=== PATIENT | male | born 1955 | race African-American/Black ===

== ENCOUNTER → 2018-04-04 | Outpatient (CLI) | payer MEDICARE, BC ==
[2017-08-20 10:48] VITALS: BP 119/84
[~2018-04-04] VITALS: Ht 180.3 cm; Wt 90.7 kg
[~2018-04-04] MED LIST: ALLO300T PO; AMLO10TA4 PO; AMLO10TA6 PO; AMLO5TAB7 PO; AMOX500C PO; ASPI-482 PO; ATEN100T PO; BUME1TAB PO; Bumetanide PO; CALC0.25 PO; CINA30TA2 PO; CLAR500T PO; CLON0.1T PO; CLON0.2T PO; CLON1PAT TD; CLON1PAT11 TD; CLON1PAT3 TD; DIPH25CA58 PO; DOCU50CA9 PO; DOXA2TAB PO; DOXA2TAB2 PO; FERR325T3 PO; FLUT1DIS3 IH; FOLI0.8T3 PO; FOLI1TAB16 PO; FURO40TA4 PO; GABA300C18 PO; GABA300S PO; HYDR-3164 PO; HYDR2TAB31 PO; IOHEXOL 240 MG/ML 50ML VIAL. IJ ONE; IOHEXOL 240 MG/ML 50ML VIAL. ONE; IPRA3AMP29 IH; LABE200T24 PO; LABE200T4 PO; LEVO500T59 PO; LEVO500T8 PO; LORA10CA PO; LOSA-73 PO; LOSA100T14 PO; LOSA25TA54 PO; METO2.5T PO; METO25TA4 PO; OLME1TAB35 PO; OMEP20CA9 PO; OXYC1TAB15 PO; OXYC1TAB8 PO; PANT40GR PO; PANT40TA3 PO; POLY17PO29 PO; POLY255P11 PO; PROAIR HFA8.5 GM INH; Pantoprazole PO; SEVE800T9 PO; SODI650T PO; TIZA2TAB PO; TORS20TA PO; TRAM50TA PO; [UNRECOGNIZED DRUG - REMARK]
--- NOTE | 2018-04-06 08:05 | RAD ---
Fluoroscopic evaluation of right lower quadrant tunneled peritoneal dialysis catheter 04/04/2018 Indication: Nonfunctioning catheter, catheter will not drain Discussion: The risks and benefits of the procedure were discussed the patient. Informed consent was obtained. A timeout procedure was performed. The anterior abdomen including the pre-existing right lower quadrant peroneal dialysis catheter were prepped and draped using sterile barrier technique.. Fluoroscopic evaluation demonstrates the position of the peritoneal catheter tip to be in the LEFT midabdomen, non the pelvis at the time of exam. Saline contrast was freely flushed through the catheter. Aspiration was sluggish. A guidewire was advanced into the catheter which was manipulated into the more inferior right pelvis. The catheter was then found to flush and aspirate normally. No evidence of loculation was seen. Sterile dressings were applied. Total fluoroscopy time: 1.5 minutes Dose area product:: 11 Gycm2 Impression: Guidewire manipulation of peritoneal dialysis catheter results in what appears to be adequate flushing and aspiration as described
== END | disposition home or self-care (01) ==
LOC: INTRAD 12:13
PROVIDERS: ATTEND Internal Medicine Nephrology
DX: T85.611A Breakdown (mechanical) of intraperitoneal dialysis catheter, initial encounter (principal); I12.9 Hypertensive chronic kidney disease with stage 1 through stage 4 chronic kidney disease, or unspecified chronic kidney disease; N18.6 End stage renal disease; K74.60 Unspecified cirrhosis of liver; N28.89 Other specified disorders of kidney and ureter; Y83.8 Other surgical procedures as the cause of abnormal reaction of the patient, or of later complication, without mention of misadventure at the time of the procedure; Y92.89 Other specified places as the place of occurrence of the external cause; Z88.8 Allergy status to other drugs, medicaments and biological substances
CPT/HCPCS: 49400; 74190; Q9966